=== PATIENT | female | born 1960 | race Hispanic/Latino ===

== ENCOUNTER 2016-12-31 19:44 | Emergency (ER) | payer BC, SELFPAY ==
--- NOTE | 2016-12-31 21:22 | RAD ---
RIGHT WRIST RADIOGRAPHS THREE VIEWS 12/31/17 PROVIDED CLINICAL HISTORY: Right wrist pain, status post injury. FINDINGS: No evidence for fracture or other acute osseous abnormality. If there is persistent clinical concern , conservative management and followup imaging are advised. IMPRESSION: As above. POS: [facility]
--- NOTE | 2016-12-31 21:27 | RAD ---
RIGHT KNEE RADIOGRAPHS FOUR VIEWS 12/31/16 PROVIDED CLINICAL HISTORY: Right knee pain status post injury. FINDINGS: No evidence for fracture or other acute osseous abnormality. If there is persistent clinical concern , conservative management and followup imaging are advised. IMPRESSION: As above. POS: [facility]
--- NOTE | 2016-12-31 23:07 | RAD ---
RIGHT SHOULDER RADIOGRAPHS THREE VIEWS 12/31/2016 PROVIDED CLINICAL HISTORY: Right shoulder pain status post injury. FINDINGS: No evidence for fracture or other acute osseous abnormality. If there is persistent clinical concer n, conservative management and follow-up imaging are advised. IMPRESSION: As above. POS: [facility]
--- NOTE | 2016-12-31 23:13 | RAD ---
LEFT ELBOW RADIOGRAPHS FOUR VIEWS 12/31/2016 PROVIDED CLINICAL HISTORY: Left elbow pain status post injury. FINDINGS: There is no evidence for fracture or other acute osseous abnormality. Osteophyte formation is seen a bout the elbow including at the radial neck. If there is persistent clinical concern, conservative m anagement and follow-up imaging are advised. IMPRESSION: As above. POS: [facility]
--- NOTE | 2016-12-31 23:14 | CT ---
CT BRAIN 12/31/16 PROVIDED CLINICAL HISTORY: Head pain status post injury. FINDINGS: The ventricular system appears normal in size and morphology. There is no evidence for intracranial hemorrhage or mass effect. The extracranial soft tissues and osseous structures demonstrate no evide nce for traumatic abnormality. IMPRESSION: No evidence for intracranial hemorrhage or mass effect. POS: [facility]
--- NOTE | 2016-12-31 23:16 | CT ---
CT CERVICAL SPINE 12/31/16 PROVIDED CLINICAL HISTORY: Neck pain status post injury. FINDINGS: There is no evidence for fracture or traumatic subluxation. Cervical degenerative changes are seen. No prevertebral soft tissue swelling apparent. The visualized lung apices appear clear. IMPRESSION: No evidence for fracture or traumatic subluxation. POS: [facility]
== END 2016-12-31 22:19 | disposition home or self-care (01) ==
LOC: NAV ERS 19:44
DX: S06.0X1A Concussion with loss of consciousness of 30 minutes or less, initial encounter (principal); S16.1XXA Strain of muscle, fascia and tendon at neck level, initial encounter; S60.211A Contusion of right wrist, initial encounter; S80.01XA Contusion of right knee, initial encounter; S40.011A Contusion of right shoulder, initial encounter; I10 Essential (primary) hypertension; F32.9 Major depressive disorder, single episode, unspecified; W18.30XA Fall on same level, unspecified, initial encounter
CPT/HCPCS: 70450; 72125

== ENCOUNTER 2017-06-16 17:36 | Emergency (ER) | payer BC ==
[2017-06-16] MEDS ORDERED: diphenhydrAMINE HCl 25 MG CAP ONE (18:21)
[2017-06-16] MEDS ORDERED: diphenhydrAMINE HCl 50 MG/ML 1 ML VIAL ONE (18:21)
[2017-06-16] MEDS ORDERED: predniSONE 20 MG TAB ONE (18:22)
[2017-06-16] MEDS ORDERED: Famotidine 20 MG TAB ONE (18:22)
== END 2017-06-16 19:25 | disposition home or self-care (01) ==
LOC: NAV ERS 17:36
DX: L50.9 Urticaria, unspecified (principal); I10 Essential (primary) hypertension; F32.9 Major depressive disorder, single episode, unspecified
CPT/HCPCS: 99282; J1200; J7506

== ENCOUNTER 2019-04-12 22:52 | Emergency (ER) | payer BC ==
[2019-04-12] MEDS ORDERED: diphenhydrAMINE 50 MG/ML VIAL ONE (23:12)
[2019-04-12] MEDS ORDERED: methylPREDNISolone Sod Succ/PF 125 MG/2 ML VIAL ONE (23:12)
== END 2019-04-13 01:25 | disposition home or self-care (01) ==
LOC: NAV ERS 22:52
DX: L50.0 Allergic urticaria (principal); F32.9 Major depressive disorder, single episode, unspecified; R73.03 Prediabetes; I10 Essential (primary) hypertension
CPT/HCPCS: 94760; 96374; 96375; J1200; J2930

== ENCOUNTER 2019-11-26 21:20 | Emergency (ER) | payer BC, SELFPAY ==
--- NOTE | 2019-11-26 22:07 | RAD ---
XR Chest Pa Lat STANDARD History: Cough Comparison: None. Findings: Lungs are clear. No pneumothorax or effusion. Cardiac silhouette and mediastinal contours a re within normal limits. No acute osseous abnormality. Mild calcifications of the transverse aorta. Impression: No acute intrathoracic abnormality.
[2019-11-26] MEDS ORDERED: Oseltamivir 75 MG CAP ONE (22:24)
[2019-11-26] MEDS ORDERED: Benzonatate 100 MG CAP ONE (22:24)
[2019-11-26] MEDS ORDERED: Ibuprofen 200 MG TAB ONE (22:24)
== END 2019-11-26 22:30 | disposition home or self-care (01) ==
LOC: NAV ERS 21:20
DX: J11.1 Influenza due to unidentified influenza virus with other respiratory manifestations (principal); I10 Essential (primary) hypertension; F41.9 Anxiety disorder, unspecified; R73.03 Prediabetes; Z79.899 Other long term (current) drug therapy
CPT/HCPCS: 71046; 87804

== ENCOUNTER 2022-12-29 20:04 | Emergency (ER) | payer BC ==
[2022-12-29] MEDS ORDERED: Cyclobenzaprine 10 MG TAB ONE (20:38)
[2022-12-29] MEDS ORDERED: Ketorolac Tromethamine 30 MG/ML VIAL ONE (20:38)
== END 2022-12-29 22:25 | disposition home or self-care (01) ==
LOC: NAV ERS 20:04
DX: M54.32 Sciatica, left side (principal); I10 Essential (primary) hypertension; Z79.899 Other long term (current) drug therapy
CPT/HCPCS: 96372; 99283; J1885

== ENCOUNTER 2024-09-24 11:00 | Outpatient (CLI) | payer OTHER | END 2024-09-24 11:01 | disposition home or self-care (01) | LOC: NAV RAD 11:00 | PROVIDERS: ATTEND Nurse Practitioner Family | DX: S89.91XA Unspecified injury of right lower leg, initial encounter (principal) ==

== ENCOUNTER 2025-06-27 20:07 | Emergency (ER) | payer MEDICARE, OTHER ==
[2025-06-27] MEDS ORDERED: Ketorolac Tromethamine 30 MG (1 mL) VIAL ONE (20:41)
== END 2025-06-27 21:10 | disposition home or self-care (01) ==
LOC: NAV ERS 20:07
DX: B34.9 Viral infection, unspecified (principal); I10 Essential (primary) hypertension; E11.9 Type 2 diabetes mellitus without complications; E78.5 Hyperlipidemia, unspecified; Z79.899 Other long term (current) drug therapy; Z79.84 Long term (current) use of oral hypoglycemic drugs; Z79.51 Long term (current) use of inhaled steroids
CPT/HCPCS: 87426; J1885; 96372; 99283

== ENCOUNTER 2025-07-05 04:43 | Emergency (ER) | payer OTHER | END 2025-07-05 06:01 | disposition home or self-care (01) | LOC: NAV ERS 04:43 | DX: B34.9 Viral infection, unspecified (principal); I10 Essential (primary) hypertension; E11.9 Type 2 diabetes mellitus without complications | CPT/HCPCS: 87081; 87400; 87426; 87430; 99283 ==